=== PATIENT | female | born 1950 | race Caucasian/White ===

== ENCOUNTER 2018-07-16 00:08 | Emergency (ER) | payer BC ==
[~2018-07-16] VITALS: Ht 154.9 cm; Wt 52.3 kg
[2018-07-16 00:11] VITALS: TEMP 98.9
[2018-07-16 01:06] LABS: HEMOGLOBIN 12.8 g/dl (12.5-16.0); MEAN CELL VOLUME 91 fl (80.0-100.0); MEAN CORPUSCULAR HEMOGLOBIN 31 pg (27.0-31.0); MEAN CORPUSCULAR HGB CONC 34 g/dl (33.0-37.0); MEAN PLATELET VOLUME 9.3 fl (7.4-10.4); PLATELET COUNT 182 K/mm3 (130-400); RED BLOOD COUNT 4.17 M/mm3 (4.10-5.30)
[2018-07-16 01:21] LABS: ALBUMIN 4.1 gm/dL (3.5-5.0); BILIRUBIN,TOTAL 0.6 mg/dL (0.0-1.0); C-REACTIVE PROTEIN 1.3 mg/dL (0.0-0.9); CREATININE, serum 1.03 mg/dL (0.52-1.25); POTASSIUM 3.7 mmol/L (3.4-5.0)
[2018-07-16 01:43] LABS: BAND 27 % (0-10); BASOPHIL 1 % (0-2); LYMPHOCYTE 9 % (20.0-51.0); NEUTROPHILS 63 % (42.0-75.2); PLATELET ESTIMATE NORMAL (NORMAL)
[2018-07-16 01:44] LABS: OVALOCYTES 1+; POIKILOCYTOSIS 2+; POLYCHROMASIA 1+
[2018-07-16 02:04] VITALS: BP 114/55; PULSE 65
== END 2018-07-16 02:15 | disposition home or self-care (01) ==
LOC: COL.ER 00:08
PROVIDERS: Emergency Medicine
DX: B34.9 Viral infection, unspecified (principal); Z90.710 Acquired absence of both cervix and uterus; Z98.890 Other specified postprocedural states
CPT/HCPCS: J1885; J2405; J7030